=== PATIENT | female | born 1970 | race American Indian/Alaskan Native ===

== ENCOUNTER 2017-07-06 11:39 | Outpatient (CLI) | payer MEDICAID ==
--- NOTE | 2017-07-07 15:28 | Mammography Report ---
BILATERAL DIGITAL SCREENING MAMMOGRAM with CAD: 07/06/17 11:39:00 CLINICAL: Routine screening. COMPARISON:None available. FINDINGS: The breasts are mostly fatty. No mass, architectural distortion or suspicious calcifications. IMPRESSION: No mammographic evidence of malignancy. BI-RADS CATEGORY: 1 - - Negative RECOMMENDATION: Routine mammographic screening in one year. COMMENT: Patient follow-up letters are generated by our [employer] application.
== END 2017-07-06 11:40 | disposition home or self-care (01) ==
LOC: SPVWC 11:39
DX: Z12.31 Encounter for screening mammogram for malignant neoplasm of breast (principal)
CPT/HCPCS: 77067

== ENCOUNTER 2018-07-08 11:38 | Outpatient (CLI) | payer MEDICAID ==
--- NOTE | 2018-07-08 16:24 | Mammography Report ---
BILATERAL DIGITAL SCREENING MAMMOGRAM with CAD: 07/08/18 11:38:00 CLINICAL: Routine screening. COMPARISON: 07/06/17 FINDINGS: There are bilateral scattered areas of fibroglandular density.No mass, architectural distortion or suspicious calcifications. IMPRESSION: No mammographic evidence of malignancy. BI-RADS CATEGORY: 1 -- Negative RECOMMENDATION: Routine mammographic screening in one year. COMMENT: Patient follow-up letters are generated by our [employer] application.
== END 2018-07-08 11:39 | disposition home or self-care (01) ==
LOC: SPVWC 11:38
DX: Z12.31 Encounter for screening mammogram for malignant neoplasm of breast (principal)
CPT/HCPCS: 77067

== ENCOUNTER 2020-08-08 07:05 | Emergency (ER) | payer MEDICAID ==
[2020-08-08 07:19] VITALS: BP 140/77
[2020-08-08] MEDS ORDERED: ACETAMINOPHEN 500 MG TAB PO STA (08:20)
[2020-08-08] MEDS ORDERED: IBUPROFEN 800 MG TAB PO STA (08:22)
--- NOTE | 2020-08-08 08:26 | Emergency Department Report ---
ED General Adult HPI - General Chief complaint: Urogenital-Female Stated complaint: PRIVATE AREA SWOLLEN Time Seen by Provider: 08/08/20 07:39 Source: patient Mode of arrival: Ambulatory Limitations: No Limitations - History of Present Illness Initial comments: 50-year-old -[place] female patient presents with complaints of vaginal itching and swelling for the past 4 days. She states a history of diabetes and hypertension. She denies any vaginal discharge states she has been sexually inactive for 17 years. No fever/chills/sweats, abdominal pain, dysuria/hematuria, or urinary frequency per patient. She reports her blood glucose has been running around 130. Patient rates her current pain as a 9/10 in severity -: Gradual - Related Data Previous Rx's Medication Instructions Recorded Last Taken Type Fluconazole [Diflucan TAB] 200 mg PO QDAY 1 Days #1 tablet 08/08/20 Unknown Rx Valacyclovir HCl [Valacyclovir] 1,000 mg PO BID 7 Days #14 tablet 08/08/20 Unknown Rx Allergies Allergy/AdvReac Type Severity Reaction Status Date / Time No Known Allergies Allergy Verified 08/08/20 07:19 ED Review of Systems ROS: Stated complaint: PRIVATE AREA SWOLLEN Other details as noted in HPI Gastrointestinal: denies: abdominal pain, nausea, vomiting Genitourinary: denies: urgency, dysuria, frequency, hematuria, discharge Skin: pruritus. denies: change in color ED Past Medical Hx - Social History Smoking Status: Never Smoker Substance Use Type: None - Medications Home Medications: Home Medications Medication Instructions Recorded Confirmed Last Taken Type Fluconazole [Diflucan TAB] 200 mg PO QDAY 1 Days #1 tablet 08/08/20 Unknown Rx Valacyclovir HCl [Valacyclovir] 1,000 mg PO BID 7 Days #14 tablet 08/08/20 Unknown Rx ED Physical Exam - General Limitations: No Limitations General appearance: alert, in no apparent distress - Head Head exam: Present: atraumatic, normocephalic - Eye Eye exam: Present: normal appearance - Respiratory Respiratory exam: Absent: respiratory distress - Cardiovascular Cardiovascular Exam: Present: regular rate - External exam: Present: swelling (Bilateral swelling noted to labia majora and labia minora with mild chunky white discharge noted), lesions (2 small ulcerations noted to left inner labia majora with erythemic bases) - Neurological Exam Neurological exam: Present: alert, oriented X3 - Psychiatric Psychiatric exam: Present: normal affect, normal mood - Skin Skin exam: Present: warm, dry, intact, normal color. Absent: rash ED Course Vital Signs 08/08/20 07:18 Temperature 98.2 F Pulse Rate 85 Respiratory 16 Rate Blood Pressure 140/77 O2 Sat by Pulse 98 Oximetry ED Medical Decision Making - Medical Decision Making 50-year-old -[place] female patient presents with complaints of vaginal itching and swelling for the past 4 days. She states a history of diabetes and hypertension. She denies any vaginal discharge states she has been sexually inactive for 17 years. No fever/chills/sweats, abdominal pain, dysuria/hematuria, or urinary frequency per patient. She reports her blood glucose has been running around 130. Patient rates her current pain as a 9/10 in severity Physical appears to be consistent with yeast vaginitis, however given 2 small ulcerations will also treat for possible genital herpes with valacyclovir. Recommend follow-up with PCP in 3 days. Discussed signs and symptoms that should prompt immediate return to the emergency department in detail patient verbalized understanding. She is well-appearing, her vitals are within normal limits, she is stable for discharge home. Critical care attestation.: If time is entered above; I have spent that time in minutes in the direct care of this critically ill patient, excluding procedure time. ED Disposition Clinical Impression: Yeast vaginitis Disposition: DC-01 TO HOME OR SELFCARE Is pt being admited?: No Condition: Stable Instructions: Vaginal Yeast Infection, Adult, Genital Herpes, Vaginitis Prescriptions: Fluconazole [Diflucan TAB] 200 mg PO QDAY 1 Days #1 tablet Valacyclovir HCl [Valacyclovir] 1,000 mg PO BID 7 Days #14 tablet Referrals: CATRINA METCALF MD [Primary Care Provider] - 3-5 Days
== END 2020-08-08 08:36 | disposition home or self-care (01) ==
LOC: ED 07:05
DX: B37.3 Candidiasis of vulva and vagina (principal); Z79.899 Other long term (current) drug therapy
CPT/HCPCS: 99282

== ENCOUNTER 2020-10-22 08:34 | Outpatient (CLI) | payer MEDICAID ==
--- NOTE | 2020-10-22 09:24 | XRay Report ---
RIGHT SHOULDER 4 VIEWS INDICATION: RIGHT SHOULDER PAIN M25.511. COMPARISON: No relevant prior imaging study available. FINDINGS: No acute, displaced fracture or dislocation is seen. No soft tissue calcifications. IMPRESSION: 1. No acute findings. Signer Name: Yazan Hernandez MD Signed: 10/22/2020 9:20 AM Workstation Name: [id number]
== END 2020-10-22 08:35 | disposition home or self-care (01) ==
LOC: SPVIMAG 08:34
PROVIDERS: ATTEND Urology
DX: M25.511 Pain in right shoulder (principal)

== ENCOUNTER 2020-11-07 09:06 | Outpatient (CLI) | payer MEDICAID ==
--- NOTE | 2020-11-07 23:08 | XRay Report ---
CHEST 2 VIEWS INDICATION / CLINICAL INFORMATION: COUGH R05. FINDINGS: SUPPORT DEVICES: None. HEART / MEDIASTINUM: No significant abnormality. LUNGS / PLEURA: No significant pulmonary or pleural abnormality. No pneumothorax. ADDITIONAL FINDINGS: No significant additional findings. IMPRESSION: 1. No acute findings. Signer Name: Wolf Todd MD Signed: 11/07/2020 11:03 PM Workstation Name: [id number]
--- NOTE | 2020-11-08 10:11 | Mammography Report ---
DIGITAL SCREENING MAMMOGRAM WITH CAD, 11/07/2020 CLINICAL INFORMATION / INDICATION: Routine screening mammography. SCREENING TECHNIQUE: Digital bilateral 2D mammography was obtained in the craniocaudal and mediolateral obliqu e projections. This examination was interpreted with the benefit of Computer-Aided Detection analysis . COMPARISON: 07/08/2018 FINDINGS: Breast Density: There are scattered areas of fibroglandular density. No dominant mass, suspicious calcifications, or architectural distortion in either breast. Stable tiny nodular density in the outer quadrant of the right breast. IMPRESSION: No mammographic evidence of malignancy. Follow up recommendation: Routine yearly BI-RADS Category 2: Benign. A "normal" or negative report should not discourage follow up or biopsy of a clinically significant f inding. A written summary of these findings will be mailed to the patient. The patient will be entered into a mammography reporting system which will generate a reminder letter for the patient's next appointmen t at the appropriate interval. The [employer] recommends yearly mammograms starting at age 40 and continuing as l [place] as a woman is in good health. Breast MRI is recommended for women with an approximate 20-25% or greater lifetime risk of breast cancer, including women with a strong family history of breast or ova juan manuel cancer or who have been treated for Hodgkin's disease. Signer Name: Daniel Wise MD Signed: 11/08/2020 10:07 AM Workstation Name: [id number]
== END 2020-11-07 09:07 | disposition home or self-care (01) ==
LOC: SPVIMAG 09:06
PROVIDERS: ATTEND Urology
DX: Z12.31 Encounter for screening mammogram for malignant neoplasm of breast (principal); R05 Cough
CPT/HCPCS: 71046; 77067

== ENCOUNTER 2020-12-18 06:06 | Emergency (ER) | payer MEDICAID ==
--- NOTE | 2020-12-18 06:35 | Emergency Department Report ---
ED General Adult HPI - General Chief complaint: Chest Pain Stated complaint: CHEST PAIN/THROAT PAIN/BODYACHES PUI?: No Time Seen by Provider: 12/18/20 06:34 Source: patient, RN notes reviewed, old records reviewed Mode of arrival: Ambulatory Limitations: No Limitations - History of Present Illness Initial comments: The patient was evaluated in the emergency department for symptoms described in the history of present illness. He/she was evaluated in the context of the global COVID-19 pandemic, which necessitated consideration that the patient might be at risk for infection with the virus that causes COVID-19. Institutional protocols and algorithms that pertain to the evaluation of patients at risk for COVID-19 are in a state of rapid change based on information released by regulatory bodies including the CDC and federal and state organizations. These policies and algorithms were followed during the patient's care in the emergency department. Please note that these policies, procedures and recommendations changed on a rapid basis. The patient is a 50-year-old female. She is not known to myself previously. S he is COVID-19 vaccinated up-to-date, and endorses a history of hypertension and diabetes. The patient presents to the ER with 2 to 3 days of cough, chest wall pain, headache, nasal congestion, without associated loss of taste or smell, vomiting, diaphoresis, exertional short of breath. She has not taken analgesia [id number]. She does not smoke cigarettes or smoke anything. She denies , leg pain, leg swelling, travel, surgery, immobilization, DVT and pulmonary embolism risk factors. Her chest wall pain is central and left-sided, and does not radiate to the back, arms or neck. There is no personal family history of DVT, PE, or CAD. No recent aspirin consumption. -: Gradual, days(s) Location: head, chest Radiation: non-radiation Quality: aching Consistency: constant Improves with: rest Worsens with: movement, other (Palpation) - Related Data Previous Rx's Medication Instructions Recorded Last Taken Type Fluconazole [Diflucan TAB] 200 mg PO QDAY 1 Days #1 tablet 08/08/20 Unknown Rx Valacyclovir HCl [Valacyclovir] 1,000 mg PO BID 7 Days #14 tablet 08/08/20 Unknown Rx Acetaminophen [Non-Aspirin Extra 500 mg PO Q6HR PRN #30 tablet 12/18/20 Unknown Rx Strength] Albuterol Sulfate [Proair 90 mcg IH Q4HR PRN #2 aer.pow.ba 12/18/20 Unknown Rx Respiclick] Benzonatate [Tessalon Perles] 100 mg PO Q8HR PRN #30 capsule 12/18/20 Unknown Rx Fluticasone [Flonase] 1 spray NS QDAY #1 bottle 12/18/20 Unknown Rx Ibuprofen [Motrin] 600 mg PO Q8H PRN #30 tablet 12/18/20 Unknown Rx Metoclopramide [Reglan] 10 mg PO QID PRN #30 tablet 12/18/20 Unknown Rx Allergies Allergy/AdvReac Type Severity Reaction Status Date / Time No Known Allergies Allergy Verified 12/18/20 06:19 ED Review of Systems ROS: Stated complaint: CHEST PAIN/THROAT PAIN/BODYACHES Other details as noted in HPI Constitutional: malaise, weakness, other (Denies loss of taste and smell). denies: fever Eyes: denies: eye discharge Respiratory: cough. denies: wheezing Cardiovascular: chest pain (Chest wall pain) Gastrointestinal: nausea. denies: abdominal pain, vomiting Musculoskeletal: arthralgia, myalgia Neurological: headache, weakness ED Past Medical Hx - Past Medical History Previous Medical History?: No - Surgical History Past Surgical History?: No - Social History Smoking Status: Never Smoker Substance Use Type: None - Medications Home Medications: Home Medications Medication Instructions Recorded Confirmed Last Taken Type Fluconazole [Diflucan TAB] 200 mg PO QDAY 1 Days #1 tablet 08/08/20 Unknown Rx Valacyclovir HCl [Valacyclovir] 1,000 mg PO BID 7 Days #14 tablet 08/08/20 Unknown Rx Acetaminophen [Non-Aspirin Extra 500 mg PO Q6HR PRN #30 tablet 12/18/20 Unknown Rx Strength] Albuterol Sulfate [Proair 90 mcg IH Q4HR PRN #2 aer.pow.ba 12/18/20 Unknown Rx Respiclick] Benzonatate [Tessalon Perles] 100 mg PO Q8HR PRN #30 capsule 12/18/20 Unknown Rx Fluticasone [Flonase] 1 spray NS QDAY #1 bottle 12/18/20 Unknown Rx Ibuprofen [Motrin] 600 mg PO Q8H PRN #30 tablet 12/18/20 Unknown Rx Metoclopramide [Reglan] 10 mg PO QID PRN #30 tablet 12/18/20 Unknown Rx ED Physical Exam - General Limitations: No Limitations General appearance: alert, anxious - Head Head exam: Present: atraumatic, normocephalic - Eye Eye exam: Present: normal appearance, EOMI. Absent: nystagmus - ENT ENT exam: Present: normal exam, normal orophraynx, mucous membranes moist, normal external ear exam - Neck Neck exam: Present: normal inspection, full ROM. Absent: tenderness, meningismus - Respiratory Respiratory exam: Present: normal lung sounds bilaterally, chest wall tenderness. Absent: respiratory distress, wheezes, rales, rhonchi, stridor, decreased breath sounds - Cardiovascular Cardiovascular Exam: Present: normal rhythm, tachycardia, normal heart sounds. Absent: bradycardia, irregular rhythm, systolic murmur, diastolic murmur, rubs, gallop - GI/Abdominal GI/Abdominal exam: Present: soft. Absent: distended, tenderness, guarding, rebound, rigid, pulsatile mass - Extremities Exam Extremities exam: Present: normal inspection, full ROM, other (2+ pulses noted in the bilateral upper and lower extremities. There is no palpable cord. negative Homans sign. Muscular compartments are soft. The pelvis is stable.). Absent: pedal edema, calf tenderness - Back Exam Back exam: Present: normal inspection, full ROM. Absent: tenderness, CVA tenderness (R), CVA tenderness (L), paraspinal tenderness, vertebral tenderness - Neurological Exam Neurological exam: Present: alert, oriented X3, normal gait, other (No facial droop. Tongue midline. Extraocular movements intact bilaterally. Facial sensation intact to light touch in V1, V2, V3 distribution bilaterally. 5 and a 5 strength in 4 extremities. Sensation intact to light touch in 4 extremities. ). Absent: motor sensory deficit - Psychiatric Psychiatric exam: Present: normal affect, normal mood - Skin Skin exam: Present: warm, dry, intact, normal color. Absent: rash ED Course Vital Signs 12/18/20 08:07 Temperature 98.2 F Pulse Rate 94 H Respiratory 14 Rate Blood Pressure 133/78 [Left] O2 Sat by Pulse 99 Oximetry - Reevaluation(s) Reevaluation #1: 12/18/20 07:36 Differential diagnosis, including the not limited to: Bronchitis, pneumonia, costochondritis, myocarditis, pericarditis, myocardial infarction, migraine headache, tension headache, cluster headache, COVID-19 Assessment and plan: 50-year-old female, who is currently afebrile, with reassuring vital signs, with improving tachycardia (heart rate 101 bpm), who denies DVT and pulmonary embolism risk factors, who is low risk by Wells criter ia for pulmonary embolism, who is not currently tachypneic or hypoxic, who is COVID-19 vaccinated, without loss of taste or smell, clear lungs, clear chest x- ray, reproducible chest wall pain, likely presenting with costochondritis, and bronchitis. Patient low risk for major adverse cardiac event as per heart score, presuming negative troponin x1. Symptoms present for days, therefore, as per the [employer] clinical policy, myocardial infarction may be ruled out with one set of troponin/cardiac enzymes. We will treat the patient's symptoms aggressively, obtain appropriate laboratory studies, repeat vital signs, and reassess. I discussed this with the patient. She is agreeable to this plan of care. All questions answered 12/18/20 08:44 CK negative troponin negative. Myocarditis, pericarditis very unlikely. Acute myocardial infarction is ruled out. Patient feels improved, noted to be playing on her cellular phone, not in any acute distress. She is suitable for discharge with outpatient follow-up ED Medical Decision Making - Lab Data Result diagrams: 12/18/20 07:46 12/18/20 07:46 Vital Signs 12/18/20 08:07 Temperature 98.2 F Pulse Rate 94 H Respiratory 14 Rate Blood Pressure 133/78 [Left] O2 Sat by Pulse 99 Oximetry Lab Results 12/18/20 12/18/20 Range/Units 07:46 07:46 WBC 6.6 (4.5-11.0) K/mm3 RBC 4.10 (3.65-5.03) M/mm3 Hgb 12.2 (10.1-14.3) gm/dl Hct 36.5 (30.3-42.9) % MCV 89 (79-97) fl MCH 30 (28-32) pg MCHC 34 (30-34) % RDW 13.7 (13.2-15.2) % Plt Count 285 (140-440) K/mm3 Lymph % (Auto) 32.9 (13.4-35.0) % Bent % (Auto) 7.5 H (0.0-7.3) % Eos % (Auto) 0.3 (0.0-4.3) % Baso % (Auto) 0.5 (0.0-1.8) % Lymph # (Auto) 2.2 (1.2-5.4) K/mm3 Bent # (Auto) 0.5 (0.0-0.8) K/mm3 Eos # (Auto) 0.0 (0.0-0.4) K/mm3 Baso # (Auto) 0.0 (0.0-0.1) K/mm3 Seg Neutrophils % 58.8 (40.0-70.0) % Seg Neutrophils # 3.9 (1.8-7.7) K/mm3 Sodium 139 (137-145) mmol/L Potassium 4.0 (3.6-5.0) mmol/L Chloride 100.0 (98-107) mmol/L Carbon Dioxide 27 (22-30) mmol/L Anion Gap 16 mmol/L BUN 7 (7-17) mg/dL Creatinine 0.7 (0.6-1.2) mg/dL Estimated GFR > 60 ml/min BUN/Creatinine Ratio 10 % Glucose 179 H (65-100) mg/dL Calcium 9.3 (8.4-10.2) mg/dL Magnesium 1.90 (1.7-2.3) mg/dL Total Creatine Kinase 58 (30-135) units/L Troponin T < 0.010 (0.00-0.029) ng/mL - EKG Data -: EKG Interpreted by [place] EKG shows normal: sinus rhythm Rate: tachycardia - EKG Data 12/18/20 07:39 EKG is interpreted at 06: 17 Sinus rhythm, tachycardia, rate 101 bpm. Normal axis, normal P wave axis,, abnormal EKG, not a STEMI. No prior for comparison. - Radiology Data Radiology results: pending, report reviewed, image reviewed CHEST 2 VIEWS INDICATION / CLINICAL INFORMATION: cough cp. FINDINGS: SUPPORT DEVICES: None. HEART / MEDIASTINUM: No significant abnormality. LUNGS / PLEURA: No significant pulmonary or pleural abnormality. No pneumothorax. ADDITIONAL FINDINGS: No significant additional findings. IMPRESSION: 1. No acute findings. Signer Name: Wolf Todd MD Signed: 12/18/2020 5:56 AM Workstation Name: [id number] Critical care attestation.: If time is entered above; I have spent that time in minutes in the direct care of this critically ill patient, excluding procedure time. ED Disposition Clinical Impression: Costochondritis, Bronchitis Disposition: 01 HOME / SELF CARE / HOMELESS Is pt being admited?: No Does the pt Need Aspirin: No Condition: Good Instructions: Costochondritis, Smik-oo-Qmar, Upper Respiratory Infection, Adult, [id number], Chronic Bronchitis (ED) Additional Instructions: As we discussed, the patient likely has bronchitis, with costochondritis. There is typically no cure for bronchitis. Bronchitis typically lasts 3 to 6 weeks. Take the pain medication as needed and directed, cough medication as needed, br eathing medication as needed, and regular medication as directed for headache and nausea. We recommend follow-up with a primary care doctor in 5 to 7 days for repeat checkup and evaluation. Advance diet as tolerated, drink plenty of fluids, and avoid consumption of heavy and spicy foods, alcohol, tobacco and smoke products. Please return to the emergency room right away with new pain, worsened pain, migration of pain, projectile vomiting, change in mental status, confusion, inability to tolerate liquid feeds, new, worsened or different symptoms not present on the initial emergency room evaluation. Prescriptions: Fluticasone [Flonase] 1 spray NS QDAY #1 bottle Ibuprofen [Motrin] 600 mg PO Q8H PRN #30 tablet PRN Reason: Pain Acetaminophen [Non-Aspirin Extra Strength] 500 mg PO Q6HR PRN #30 tablet PRN Reason: Pain , Severe (7-10) Albuterol Sulfate [Proair Respiclick] 90 mcg IH Q4HR PRN #2 aer.pow.ba PRN Reason: Wheezing Metoclopramide [Reglan] 10 mg PO QID PRN #30 tablet PRN Reason: Nausea Benzonatate [Tessalon Perles] 100 mg PO Q8HR PRN #30 capsule PRN Reason: Cough Referrals: ROSENDO STINSON MD [Staff Physician] - 7-10 days [facility] [Provider Group] - 7-10 days Heart Score - HEART Score History: Slightly suspicious EKG: Non-specific Age: 45-65 Risk factors: 1-2 risk factors Troponin: < normal limit HEART Score: 3 - EKG Read Time Time EKG Completed: 06:17 EKG Read Time: 06:17 - Critical Actions Critical Actions: 0-3 pts:0.9-1.7%risk of adverse cardiac event.Candidate for discharge
--- NOTE | 2020-12-18 07:00 | XRay Report ---
CHEST 2 VIEWS INDICATION / CLINICAL INFORMATION: cough cp. FINDINGS: SUPPORT DEVICES: None. HEART / MEDIASTINUM: No significant abnormality. LUNGS / PLEURA: No significant pulmonary or pleural abnormality. No pneumothorax. ADDITIONAL FINDINGS: No significant additional findings. IMPRESSION: 1. No acute findings. Signer Name: Wolf Todd MD Signed: 12/18/2020 6:56 AM Workstation Name: [id number]
[2020-12-18] MEDS ORDERED: ACETAMINOPHEN 500 MG TAB PO ONE (07:31)
[2020-12-18] MEDS ORDERED: KETOROLAC 30 MG/1 ML INJ IV ONE (07:31)
[2020-12-18] MEDS ORDERED: ONDANSETRON 4 MG/2 ML INJ IV ONE (07:31)
[2020-12-18] MEDS ORDERED: METOCLOPRAMIDE 10 MG/2 ML INJ IV ONE (07:34)
[2020-12-18] MEDS ORDERED: diphenhydrAMINE 50 MG/ML VIAL IV ONE (07:34)
[2020-12-18 08:17] LABS: Basophils % (Auto) 0.5 % (0.0-1.8); Eosinophils % (Auto) 0.3 % (0.0-4.3); Hematocrit 36.5 % (30.3-42.9); Hemoglobin 12.2 gm/dl (10.1-14.3); Lymphocytes # (Auto) 2.2 K/mm3 (1.2-5.4); Lymphocytes % (Auto) 32.9 % (13.4-35.0); Mean Corpuscular HGB Conc 34 % (30-34); Mean Corpuscular Volume 89 fl (79-97); Monocytes # (Auto) 0.5 K/mm3 (0.0-0.8); Monocytes % (Auto) 7.5 % (0.0-7.3); Platelet Count 285 K/mm3 (140-440); Red Cell Distribution Width 13.7 % (13.2-15.2)
[2020-12-18 08:42] LABS: Blood Urea Nitrogen 7 mg/dL (7-17); Calcium 9.3 mg/dL (8.4-10.2); Hemolysis Index 11
[2020-12-18 08:44] LABS: BUN/Creatinine Ratio 10
[2020-12-18 08:51] LABS: INR 0.94 (0.87-1.13)
[2020-12-18] MEDS ORDERED: METOCLOPRAMIDE 10 MG TAB PO ONE (08:55)
[2020-12-18] MEDS ORDERED: IBUPROFEN 600 MG TAB PO ONE (08:55)
[2020-12-18 09:04] VITALS: BP 144/74
--- NOTE | 2020-12-19 11:46 | Electrocardiograph Report ---
[facility] Test Date: 2020-12-18 Test Time: 06:17:35 Pat Name: RENZO ESTEBAN Department: Room: Gender: F [employer] Header: : [id number] Requested By: MERY SUAREZ Order Number: [id number] Reading MD: Eduardo Porter Measurements Intervals [place] Rate: 101 P: 65 [place]: 157 QRS: 39 QRSD: 80 T: 46 QT: 333 QTc: 431 Interpretive Statements Sinus tachycardia No previous ECG available for comparison Electronically Signed On 12-19-2020 11:46:05 EDT by Eduardo Porter
== END 2020-12-18 09:46 | disposition home or self-care (01) ==
LOC: ED 06:06
DX: M94.0 Chondrocostal junction syndrome [Tietze] (principal); J40 Bronchitis, not specified as acute or chronic
CPT/HCPCS: 36415; 71046; 80048; 82550; 83735; 84484; 85025; 85610; 93005; 99284; J1200; J2765; J1885

== ENCOUNTER 2020-12-25 14:35 | Emergency (ER) | payer MEDICAID ==
[2020-12-25] MEDS ORDERED: IBUPROFEN 600 MG TAB PO ONE (16:32)
--- NOTE | 2020-12-25 16:32 | Emergency Department Report ---
- General Chief Complaint: Upper Respiratory Infection Stated Complaint: CONGESTION/HEADACHE Time Seen by Provider: 12/25/20 16:03 Source: patient Mode of arrival: Ambulatory Limitations: No Limitations - History of Present Illness Initial Comments: Patient is a 50-year-old female presents emergency with complaints of chest congestion that began approximately 10 days ago. She has associated cough with mucus production and diarrhea. She states she occasionally feels short of breath after a coughing spell. She denies any vomiting, fever, leg swelling, hemoptysis, pleuritic pain. She states that she has been fully vaccinated for COVID-19. Past medical history of diabetes. No allergies to medications. She is a former smoker. - Related Data Previous Rx's Medication Instructions Recorded Last Taken Type Fluconazole [Diflucan TAB] 200 mg PO QDAY 1 Days #1 tablet 08/08/20 Unknown Rx Valacyclovir HCl [Valacyclovir] 1,000 mg PO BID 7 Days #14 tablet 08/08/20 Unknown Rx Acetaminophen [Non-Aspirin Extra 500 mg PO Q6HR PRN #30 tablet 12/18/20 Unknown Rx Strength] Albuterol Sulfate [Proair 90 mcg IH Q4HR PRN #2 aer.pow.ba 12/18/20 Unknown Rx Respiclick] Benzonatate [Tessalon Perles] 100 mg PO Q8HR PRN #30 capsule 12/18/20 Unknown Rx Fluticasone [Flonase] 1 spray NS QDAY #1 bottle 12/18/20 Unknown Rx Ibuprofen [Motrin] 600 mg PO Q8H PRN #30 tablet 12/18/20 Unknown Rx Metoclopramide [Reglan] 10 mg PO QID PRN #30 tablet 12/18/20 Unknown Rx Albuterol Sulfate [Proventil Hfa] 1 - 2 puff IH TID PRN #1 hfa.aer.ad 12/25/20 Unknown Rx Doxycycline Hyclate [Doxycycline 100 mg PO BID 7 Days #14 tab 12/25/20 Unknown Rx Hyclate TAB] predniSONE [Deltasone] 40 mg PO QDAY 5 Days #10 tab 12/25/20 Unknown Rx Allergies Allergy/AdvReac Type Severity Reaction Status Date / Time No Known Allergies Allergy Verified 12/18/20 06:19 ED Review of Systems ROS: Stated complaint: CONGESTION/HEADACHE Other details as noted in HPI Comment: All other systems reviewed and negative ED Past Medical Hx - Past Medical History Previous Medical History?: Yes Hx Diabetes: Yes - Social History Smoking Status: Never Smoker Substance Use Type: None - Medications Home Medications: Home Medications Medication Instructions Recorded Confirmed Last Taken Type Fluconazole [Diflucan TAB] 200 mg PO QDAY 1 Days #1 tablet 08/08/20 Unknown Rx Valacyclovir HCl [Valacyclovir] 1,000 mg PO BID 7 Days #14 tablet 08/08/20 Unknown Rx Acetaminophen [Non-Aspirin Extra 500 mg PO Q6HR PRN #30 tablet 12/18/20 Unknown Rx Strength] Albuterol Sulfate [Proair 90 mcg IH Q4HR PRN #2 aer.pow.ba 12/18/20 Unknown Rx Respiclick] Benzonatate [Tessalon Perles] 100 mg PO Q8HR PRN #30 capsule 12/18/20 Unknown Rx Fluticasone [Flonase] 1 spray NS QDAY #1 bottle 12/18/20 Unknown Rx Ibuprofen [Motrin] 600 mg PO Q8H PRN #30 tablet 12/18/20 Unknown Rx Metoclopramide [Reglan] 10 mg PO QID PRN #30 tablet 12/18/20 Unknown Rx Albuterol Sulfate [Proventil Hfa] 1 - 2 puff IH TID PRN #1 hfa.aer.ad 12/25/20 Unknown Rx Doxycycline Hyclate [Doxycycline 100 mg PO BID 7 Days #14 tab 12/25/20 Unknown Rx Hyclate TAB] predniSONE [Deltasone] 40 mg PO QDAY 5 Days #10 tab 12/25/20 Unknown Rx ED Physical Exam - General Limitations: No Limitations General appearance: alert, in no apparent distress - Head Head exam: Present: atraumatic, normocephalic - Eye Eye exam: Present: normal appearance - ENT ENT exam: Present: mucous membranes moist - Respiratory Respiratory exam: Present: rhonchi (mild bilaterally ). Absent: respiratory distress, wheezes, rales, stridor, chest wall tenderness, accessory muscle use, decreased breath sounds, prolonged expiratory - Cardiovascular Cardiovascular Exam: Present: regular rate, normal rhythm, normal heart sounds. Absent: systolic murmur, diastolic murmur, rubs, gallop - Neurological Exam Neurological exam: Present: alert, oriented X3 - Psychiatric Psychiatric exam: Present: normal affect, normal mood - Skin Skin exam: Present: warm, dry, intact ED Course Vital Signs 12/25/20 12/25/20 15:43 16:53 Temperature 98.4 F 97.9 F Pulse Rate 94 H 88 Respiratory 16 18 Rate Blood Pressure 148/79 140/73 [Right] O2 Sat by Pulse 96 96 Oximetry ED Medical Decision Making - Medical Decision Making Patient is a 50-year-old female presents emergency with complaints of chest congestion that began approximately 10 days ago. She has associated cough with mucus production and diarrhea. She states she occasionally feels short of breath after a coughing spell. She denies any vomiting, fever, leg swelling, hemoptysis, pleuritic pain. She states that she has been fully vaccinated for COVID-19. Past medical history of diabetes. No allergies to medications. She is a former smoker. Vitals are stable. On exam mild rhonchi bilaterally, no wheezing, no rales, no distress, no accessory muscle use. Patient is afebrile, no tachycardia, no hypoxia. Patient states that she was unable to get the inhaler filled due to monetary issues and reports that her insurance would not cover it. Symptoms and examination appear likely consistent with bronchitis. Given that patient is a former smoker and she has had a change in her sputum production will cover patient with antibiotics. Patient given prescription for medications. Advised patient Please take medication as prescribed. Increase your fluid intake. May use a vaporizer. Please be sure to monitor your blood sugar daily and if your blood sugar is going greater than or equal to 250 please stop the steroids (prednisone). Follow-up with a primary care doctor for reexamination. Return to emergency room for any new or worsening symptoms. Critical care attestation.: If time is entered above; I have spent that time in minutes in the direct care of this critically ill patient, excluding procedure time. ED Disposition Clinical Impression: Acute bronchitis Qualifiers: Bronchitis organism: unspecified organism Qualified Code(s): J20.9 - Acute bronchitis, unspecified Disposition: 01 HOME / SELF CARE / HOMELESS Is pt being admited?: No Does the pt Need Aspirin: No Condition: Stable Instructions: Acute Bronchitis, Adult, [id number], Acute Bronchitis (ED) Additional Instructions: Please take medication as prescribed. Increase your fluid intake. May use a vaporizer. Please be sure to monitor your blood sugar daily and if your blood sugar is going greater than or equal to 250 please stop the steroids (p rednisone). Follow-up with a primary care doctor for reexamination. Return to emergency room for any new or worsening symptoms. Prescriptions: predniSONE [Deltasone] 40 mg PO QDAY 5 Days #10 tab Doxycycline Hyclate [Doxycycline Hyclate TAB] 100 mg PO BID 7 Days #14 tab Albuterol Sulfate [Proventil Hfa] 1 - 2 puff IH TID PRN #1 hfa.aer.ad PRN Reason: shortness of breath/wheezing Referrals: your, primary care [Other] - 3-5 Days [facility] [Provider Group] - 3-5 Days Time of Disposition: 16:33 Print Language: OMANI
[2020-12-25 16:54] VITALS: BP 140/73
== END 2020-12-25 16:53 | disposition home or self-care (01) ==
LOC: ED 14:35
DX: J20.9 Acute bronchitis, unspecified (principal); E11.8 Type 2 diabetes mellitus with unspecified complications
CPT/HCPCS: 99282